=== PATIENT | female | born 1995 | race Hispanic/Latino ===

== ENCOUNTER 2019-08-17 10:02 | Outpatient (CLI) | payer BC ==
--- NOTE | 2019-08-17 11:19 | CT ---
CT IAC AND TEMPORAL BONES WITHOUT CONTRAST: HISTORY: Right ear problem. History of cholesteatoma. Right ear hearing loss. Previous surgery. COMPARISON: None. FINDINGS: Visualized brain parenchyma is grossly unremarkable. Adequate aeration of the visualized paranasal sinus. Small mucous retention cyst in the medial right maxillary sinus measures 1.3 cm Right IAC/temporal bone: The internal artery canal, cochlea, vestibule and semicircular canals have an appropriate appearance and configuration. Vestibular aqueduct is not enlarged. There is an absent normal ossicular chain. There is sclerosis of the right mastoid air cells with overall diminished pneumatization. The tegmen tympani and tegmen mastoideum do appear to be preserved. Blunted scutum. Normal-appearing tympanic membrane is not appreciated. There is nonspecific linear density which may represent a retracted resi dual tympanic membrane. Left IAC/temporal bone: The internal artery canal, cochlea, vestibule and semicircular canals have an appropriate appearance and configuration. Vestibular aqueduct is not enlarged. Ossicular chain is intact. Stapedial footplate is appropriately located. Adequate aeration of the middle ear. Tegmen tympani and tegmen ma stoideum are preserved. Adequate aeration of the mastoid air cells. Scutum is sharp. Unremarkable tympanic membrane. IMPRESSION: 1. Presumed postoperative changes involving the right middle ear with resection of the ossicular patricia n. 2. 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 There is decreased pneumatization with residual sclerosis. 3. Unremarkable left internal auditory canal/temporal bone CT. Transcribed Date/Time: 08/17/2019 12:34 PM
== END 2019-08-17 10:03 | disposition home or self-care (01) ==
LOC: BICCT 10:02
PROVIDERS: ATTEND Otolaryngology Plastic Surgery within the Head & Neck
DX: H71.90 Unspecified cholesteatoma, unspecified ear (principal); Z98.890 Other specified postprocedural states
CPT/HCPCS: 70480